=== PATIENT | male | born 1990 | race Caucasian/White ===

== ENCOUNTER 2018-12-21 15:16 | Emergency (ER) | payer SELFPAY, BC ==
[2018-12-21] MEDS: ACETAMINOPHEN 325 MG TAB PO (18:07)
[2018-12-21] MEDS: PROMETHAZINE/CODEINE 5ML CUP PO (18:07)
== END 2018-12-21 19:00 | disposition home or self-care (01) ==
LOC: FTE 15:16
DX: R05 Cough (principal); Z87.891 Personal history of nicotine dependence
CPT/HCPCS: 71045; 99283-25